=== PATIENT | female | born 1995 | race Caucasian/White ===

== ENCOUNTER 2018-01-28 19:28 | Emergency (ER) | payer OTHER ==
[~2018-01-28] VITALS: Ht 170.2 cm; Wt 65.8 kg
[~2018-01-28 19:28] MED LIST: Amoxicillin500 MG PO; IBUP800 PO; IRON150C PO; Percocet 5-3251 EACH PO
[2018-01-28] MEDS ORDERED: GUAI600T33 PO (21:34)
[2018-01-28] MEDS ORDERED: Zithromax250 MG PO (21:34)
== END 2018-01-28 21:44 | disposition home or self-care (01) ==
LOC: ER 19:28
DX: J20.9 Acute bronchitis, unspecified (principal); J45.909 Unspecified asthma, uncomplicated; D64.9 Anemia, unspecified
CPT/HCPCS: 71046; 99283

== ENCOUNTER → 2019-02-13 | Outpatient (CLI) | payer OTHER ==
[~2019-02-13] MED LIST changes: +GUAI600T33 PO; +Zithromax250 MG PO
== END ==
LOC: LAB SHORT 19:17 → LAB 19:17
PROVIDERS: Registered Nurse Community Health
DX: Z12.4 Encounter for screening for malignant neoplasm of cervix (principal)
CPT/HCPCS: G0123

== ENCOUNTER 2019-08-22 13:49 | Emergency (ER) | payer OTHER ==
[~2019-08-22] VITALS: Ht 165.1 cm; Wt 70.8 kg
[2019-08-22 14:42] LABS: BASOPHILS ABSOLUTE AUTO 0.03 K/mm3 (0.00-0.23); BASOPHILS PERCENT AUTO 0 % (0-2); EOSINOPHILS ABSOLUTE AUTO 0.11 K/mm3 (0.00-0.68); EOSINOPHILS PERCENT AUTO 1 % (0-6); Hematocrit 47.7 % (33.0-51.0); Hemoglobin 15.6 g/dL (11.5-16.0); IMMATURE GRAN ABSOLUTE AUTO 0.02 K/mm3 (0.00-0.10); IMMATURE GRAN PERCENT AUTO 0 % (0-1); LYMPHOCYTES ABSOLUTE AUTO 0.54 K/mm3 (0.84-5.20); LYMPHOCYTES PERCENT AUTO 6 % (21-46); MONOCYTES ABSOLUTE AUTO 0.37 K/mm3 (0.16-1.47); MONOCYTES PERCENT AUTO 4 % (4-13); Mean Corpuscular HGB 30.6 pg (26.0-34.0); Mean Corpuscular HGB Conc 32.7 g/dL (31.5-36.5); Mean Corpuscular Volume 94 fL (80-100); Mean Platelet Volume 10.9 fL (9.1-12.4); NEUTROPHILS ABSOLUTE AUTO 7.35 K/mm3 (1.96-9.15); NEUTROPHILS PERCENT AUTO 87 % (41-73); Platelet Count 196 K/mm3 (150-400); RDW Coefficient Variation 12.5 % (11.7-14.2); RDW Standard Deviation 42.8 fL (35.1-46.3); White Blood Cell Count 8.42 K/mm3 (4.00-11.30)
[2019-08-22 14:44] LABS: Source, Urine Clean Catch
[2019-08-22 14:51] LABS: Bilirubin, Urine Neg (Neg); Blood, Urine 1+ (Neg); Glucose Qualitative, Urine Neg (Neg); Ketones, Urine 1+ (Neg); Leukocyte Esterase, Urine 1+ (Neg); Nitrite, Urine Neg (Neg); Protein, Urine 1+ (Neg); Urobilinogen, Urine 1+ (Normal)
[2019-08-22 14:55] LABS: Appearance, Urine Clear (Clear); Color, Urine Yellow (P-Yellow)
[2019-08-22 15:01] LABS: Alanine Aminotransfer (ALT/SGP 24 U/L (12-78); Albumin, Blood 4.6 g/dL (3.4-5.0); Albumin/Globulin Ratio 1.2 (0.8-1.8); Alk Phos 118 U/L (50-136); Anion Gap 8 mmol/L (6-16); Aspartate Aminotrans (AST/SGOT 22 U/L (12-37); Bilirubin, Total 1.4 mg/dL (0.1-1.0); Blood Urea Nitrogen 15 mg/dL (8-24); Bun/Creatinine Ratio 27.5 (12.0-20.0); CO2, Blood 17 mmol/L (21-32); Calcium, Blood 9.5 mg/dL (8.5-10.1); Chloride, Blood 114 mmol/L (98-108); Creatinine, Blood 0.55 mg/dL (0.40-1.00); Glomerular Filtration Rate >60 (60-); Glucose, Blood 95 mg/dL (70-99); Potassium, Blood 3.7 mmol/L (3.5-5.5); Sodium, Blood 139 mmol/L (136-145); Total Protein, Blood 8.6 g/dL (6.4-8.2)
[2019-08-22 15:08] LABS: Red Blood Cells, Urine 0-2 /hpf (0-2); Squamous Epithelial Cells Few /hpf (Few); White Blood Cells, Urine 0-2 /hpf (0-5)
[2019-08-22 15:09] LABS: Bacteria Mod /hpf; Mucus Mod (0-Heavy)
== END 2019-08-22 16:15 | disposition home or self-care (01) ==
LOC: ER 13:49
PROVIDERS: Physician Assistant
DX: R19.7 Diarrhea, unspecified (principal); R11.2 Nausea with vomiting, unspecified; E86.0 Dehydration; F17.200 Nicotine dependence, unspecified, uncomplicated
CPT/HCPCS: 36415; 80053; 81001; 81025; 83690; 85025; 87086; 96361; 96374; 99284-25; J2405; J7030

== ENCOUNTER → 2023-11-25 | Outpatient (CLI) | payer OTHER ==
[~2023-11-25] MED LIST changes: +ALBU90OI INH; +HYDR1TAB94 PO; +ONDA4 PO; +SYMBICORT 160-4.6 GM IH
== END ==
LOC: LAB SHORT 07:53 → LAB 07:53
DX: R35.0 Frequency of micturition (principal)
CPT/HCPCS: 87086

== ENCOUNTER 2023-12-02 17:12 | Observation (INO) | payer OTHER ==
[~2023-12-02] VITALS: Ht 165.1 cm; Wt 73.0 kg
[~2023-12-02 17:12] MED LIST changes: -ALBU90OI INH; -HYDR1TAB94 PO; -ONDA4 PO; -SYMBICORT 160-4.6 GM IH
[2023-12-02] MEDS ORDERED: SYMBICORT 160-4.6 GM IH (21:51)
[2023-12-02] MEDS ORDERED: ALBU90OI INH (21:51)
[2023-12-02] MEDS ORDERED: Ketorolac Tromethamine 15mg Vial IV ONE (21:55)
[2023-12-02] MEDS ORDERED: FLU VACC QS2023-24(6MOS UP)/PF 60 MCG/0.5 ML SYRINGE IM ONE (22:15)
[2023-12-02] MEDS ORDERED: HYDROcodone 5-APAP 325 TAB PO PRN (22:15)
[2023-12-02] MEDS ORDERED: FentaNYL Citrate 50 MCG/ML 2 ML Injection IV PRN (22:15)
[2023-12-02] MEDS ORDERED: Ondansetron HCl 2 MG / ML 2ML Vial IV PRN (22:20)
[2023-12-02] MEDS ORDERED: Lactated Ringer's 1,000 ML IV SCH (22:20)
[2023-12-02] MEDS ORDERED: Ampicillin Sod/Sulbactam Sod 3 GM in NS 100 ML IV SCH (22:26)
[2023-12-02] MEDS ORDERED: Ketorolac Tromethamine 30mg Vial IV PRN (22:30)
[2023-12-02] MEDS ORDERED: Albuterol HFA200 ACT/6.7 GM INH INH PRN (22:30)
[2023-12-02] MEDS ORDERED: Mometasone/Formoterol MDI 200/5 mcg 13 GM INH SCH (22:30)
[2023-12-03] VITALS (17 sets, daily range): BP systolic 104–125; BP diastolic 59–77
[2023-12-03 03:59] LABS: BASOPHILS ABSOLUTE AUTO 0.03 K/mm3 (0.00-0.23); BASOPHILS PERCENT AUTO 1 % (0-2); EOSINOPHILS ABSOLUTE AUTO 0.12 K/mm3 (0.00-0.68); EOSINOPHILS PERCENT AUTO 4 % (0-6); Hematocrit 35.2 % (33.0-51.0); Hemoglobin 12.1 g/dL (11.5-16.0); Mean Corpuscular HGB 31.7 pg (26.0-34.0); Mean Corpuscular HGB Conc 34.4 g/dL (31.5-36.5); Mean Corpuscular Volume 92 fL (80-100); Mean Platelet Volume 11.1 fL (9.1-12.4); Platelet Count 185 K/mm3 (150-400); RDW Coefficient Variation 11.9 % (11.7-14.2); RDW Standard Deviation 40.4 fL (35.1-46.3); Red Blood Cell Count 3.82 M/mm3 (3.80-5.20); White Blood Cell Count 3.32 K/mm3 (4.00-11.30)
[2023-12-03 04:00] LABS: IMMATURE GRAN PERCENT AUTO 0 % (0-1); LYMPHOCYTES ABSOLUTE AUTO 1.61 K/mm3 (0.84-5.20); LYMPHOCYTES PERCENT AUTO 49 % (21-46); MONOCYTES ABSOLUTE AUTO 0.28 K/mm3 (0.16-1.47); MONOCYTES PERCENT AUTO 8 % (4-13); NEUTROPHILS ABSOLUTE AUTO 1.28 K/mm3 (1.96-9.15); NEUTROPHILS PERCENT AUTO 39 % (41-73)
[2023-12-03 04:20] LABS: Albumin, Blood 3.5 g/dL (3.4-5.0); Albumin/Globulin Ratio 1.2 (0.8-1.8); Bilirubin, Total 1.1 mg/dL (0.1-1.0); Bun/Creatinine Ratio 21.3 (12.0-20.0); Calcium, Blood 8.6 mg/dL (8.5-10.1); Creatinine, Blood 0.56 mg/dL (0.40-1.00); Potassium, Blood 2.9 mmol/L (3.5-5.5); Total Protein, Blood 6.5 g/dL (6.4-8.2)
[2023-12-03] MEDS ORDERED: Potassium Chloride 20 MEQ TabCR PO ONE (08:40)
--- NOTE | 2023-12-03 08:45 | NUR ---
SUMMARY PT POTASSIUM 2.[address] MEJIAS ORDERED 40 MEQ OF K.PT ALERT,AMBULATORY,IV FLUIDS INFUSING TO CLEAR SITE.NPO OTHER THAN K ORDERED.
[2023-12-03] MEDS ORDERED: Nicotine 7 MG PATCH TOP SCH (10:05)
[2023-12-03] MEDS ORDERED: Bupivacaine 0.5% HCl 5 MG/ML 30MLVIAL ONE (10:50)
[2023-12-03] MEDS ORDERED: propofoL 20 ML IV ONE (10:51)
[2023-12-03] MEDS ORDERED: Lidocaine HCl 2% 20 ML MDV ONE (10:51)
[2023-12-03] MEDS ORDERED: FentaNYL Citrate 50 MCG/ML 2 ML Injection ONE ×5 (10:53→13:17)
[2023-12-03] MEDS ORDERED: Rocuronium Bromide 10 MG/ML 5ML Injection IV ONE (10:53)
[2023-12-03] MEDS ORDERED: Lidocaine HCl 2% Jelly 120MG/6ML SYR (20MG PER ML) ONE (11:04)
[2023-12-03] MEDS ORDERED: FentaNYL Citrate 50 MCG/ML 2 ML Injection IV PRN ×4 (11:05→12:40)
[2023-12-03] MEDS ORDERED: Lidocaine HCl 1% 5 ML SYR INJ ONE (11:05)
[2023-12-03] MEDS ORDERED: Midazolam HCl 1MG / ML 2ML Vial IV ONE (11:05)
[2023-12-03] MEDS ORDERED: Ondansetron HCl 2 MG / ML 2ML Vial IV PRN (11:10)
[2023-12-03] MEDS ORDERED: Midazolam HCl 1MG / ML 2ML Vial ONE (11:14)
--- NOTE | 2023-12-03 11:16 | NUR ---
pt taken to day surgery at approximately 1110
[2023-12-03] MEDS ORDERED: Dexamethasone Sod Phos 10 MG/ML 1ML VIAL ONE (11:34)
[2023-12-03] MEDS ORDERED: Ondansetron HCl 2 MG / ML 2ML Vial ONE (11:34)
--- NOTE | 2023-12-03 11:48 | NUR ---
12/03/23 1148 Clay Llamas AMPICILLIN 3GRAMS GIVEN IV AT [address] RAYMOND
[2023-12-03] MEDS ORDERED: Sugammadex Sodium 200 MG/2ML SDV (100 MG/ML) ONE (12:35)
[2023-12-03] MEDS ORDERED: Lactated Ringer's 1,000 ML IV SCH (12:40)
[2023-12-03] MEDS ORDERED: HYDR1TAB94 PO (16:19)
--- NOTE | 2023-12-03 17:56 | NUR ---
DISCHARGE PT A&OX4, VSS/RA, ARIA PO, VOIDING, AMB INDEPENDENTLY/DRESSED SELF, PAIN MANAGED, IVx2 DC'd. DC INS PROVIDED. PT AND S/O REP UNDERSTANDING THOSE INSTRUCTIONS. LEFT FLOOR WITH ALL PERSONAL POSSESSIONS INCLUDING DC INSTRUCTIONS, WEARING ABD BINDER, TO GO HOME WITH S/O.
[2023-12-04] MEDS ORDERED: Nicotine 7 MG PATCH TOP SCH (09:00)
[2023-12-07] MEDS ORDERED: ONDA4 PO (09:43)
== END 2023-12-03 17:55 | disposition home or self-care (01) ==
LOC: ER 17:12 → SURS 17:14
PROVIDERS: ADMIT Surgery
PROC: 0FT44ZZ Resection of Gallbladder, Percutaneous Endoscopic Approach (ICD-10-PCS; principal; 2023-12-03 11:00)
DX: K81.0 Acute cholecystitis (principal); J45.909 Unspecified asthma, uncomplicated; F17.210 Nicotine dependence, cigarettes, uncomplicated; R10.11 Right upper quadrant pain; R19.5 Other fecal abnormalities
CPT/HCPCS: 36415; 74022; 76705; 80053; 81025; 83690; 85025; 88304; 94760; 96361; 96365; 96375; 96376; 99285-25; A9270; C1729; G0378; J0295; J1100; J1885; J2250; J2405; J2704; J3010; J7120

== ENCOUNTER 2024-10-17 07:54 | Emergency (ER) | payer OTHER ==
[~2024-10-17] VITALS: Ht 165.1 cm; Wt 72.6 kg
[~2024-10-17 07:54] MED LIST changes: +ALBU90OI INH; +HYDR1TAB94 PO; +ONDA4 PO; +SYMBICORT 160-4.6 GM IH
[2024-10-17 09:23] VITALS: BP 134/77
[2024-10-17 10:04] LABS: BASOPHILS ABSOLUTE AUTO 0.03 K/mm3 (0.00-0.23); BASOPHILS PERCENT AUTO 1 % (0-2); EOSINOPHILS ABSOLUTE AUTO 0.05 K/mm3 (0.00-0.68); EOSINOPHILS PERCENT AUTO 1 % (0-6); Hematocrit 42.2 % (33.0-51.0); Hemoglobin 14.1 g/dL (11.5-16.0); IMMATURE GRAN ABSOLUTE AUTO 0.01 K/mm3 (0.00-0.10); IMMATURE GRAN PERCENT AUTO 0 % (0-1); LYMPHOCYTES ABSOLUTE AUTO 1.28 K/mm3 (0.84-5.20); LYMPHOCYTES PERCENT AUTO 22 % (21-46); MONOCYTES ABSOLUTE AUTO 0.34 K/mm3 (0.16-1.47); MONOCYTES PERCENT AUTO 6 % (4-13); Mean Corpuscular HGB 31.8 pg (26.0-34.0); Mean Corpuscular HGB Conc 33.4 g/dL (31.5-36.5); Mean Corpuscular Volume 95 fL (80-100); Mean Platelet Volume 11.2 fL (9.1-12.4); NEUTROPHILS ABSOLUTE AUTO 4.03 K/mm3 (1.96-9.15); NEUTROPHILS PERCENT AUTO 70 % (41-73); Platelet Count 214 K/mm3 (150-400); RDW Coefficient Variation 12.1 % (11.7-14.2); RDW Standard Deviation 42.3 fL (35.1-46.3); Red Blood Cell Count 4.44 M/mm3 (3.80-5.20); White Blood Cell Count 5.74 K/mm3 (4.00-11.30)
[2024-10-17 10:38] LABS: Alanine Aminotransfer (ALT/SGP 175 U/L (12-78); Albumin, Blood 4.3 g/dL (3.4-5.0); Albumin/Globulin Ratio 1.1 (0.8-1.8); Alk Phos 144 U/L (50-136); Anion Gap 8 mmol/L (3-11); Aspartate Aminotrans (AST/SGOT 245 U/L (12-37); Beta HCG, Quantitative, Serum <1 mIU/mL (0-3); Blood Urea Nitrogen 8 mg/dL (8-24); Bun/Creatinine Ratio 13.4 (12.0-20.0); CO2, Blood 21 mmol/L (21-32); Calcium, Blood 9.2 mg/dL (8.5-10.1); Chloride, Blood 116 mmol/L (98-108); Globulin, Blood 3.8 g/dL (2.2-4.0); Glomerular Filtration Rate 124 (60-); Glucose, Blood 88 mg/dL (70-99); Potassium, Blood 5.3 mmol/L (3.5-5.5); Sodium, Blood 140 mmol/L (136-145); Total Protein, Blood 8.1 g/dL (6.4-8.2)
[2024-10-17] MEDS ORDERED: Magnesium Citr296 ML PO (11:31)
== END 2024-10-17 11:39 | disposition home or self-care (01) ==
LOC: ER 07:54
PROVIDERS: Student in an Organized Health Care Education/Training Program
DX: R10.11 Right upper quadrant pain (principal); J45.909 Unspecified asthma, uncomplicated; Z88.8 Allergy status to other drugs, medicaments and biological substances
CPT/HCPCS: 74177; 80053; 83690; 84702; 85025; Q9967

== ENCOUNTER 2025-08-04 16:27 | Emergency (ER) | payer OTHER ==
[~2025-08-04] VITALS: Ht 165.1 cm; Wt 68.5 kg
[~2025-08-04 16:27] MED LIST changes: +Magnesium Citr296 ML PO
[2025-08-04 17:30] LABS: BASOPHILS ABSOLUTE AUTO 0.03 K/mm3 (0.00-0.23); BASOPHILS PERCENT AUTO 1 % (0-2); EOSINOPHILS ABSOLUTE AUTO 0.03 K/mm3 (0.00-0.68); EOSINOPHILS PERCENT AUTO 1 % (0-6); Hematocrit 39.9 % (33.0-51.0); Hemoglobin 13.1 g/dL (11.5-16.0); IMMATURE GRAN ABSOLUTE AUTO 0.02 K/mm3 (0.00-0.10); IMMATURE GRAN PERCENT AUTO 0 % (0-1); LYMPHOCYTES ABSOLUTE AUTO 1.83 K/mm3 (0.84-5.20); LYMPHOCYTES PERCENT AUTO 35 % (21-46); MONOCYTES ABSOLUTE AUTO 0.30 K/mm3 (0.16-1.47); MONOCYTES PERCENT AUTO 6 % (4-13); Mean Corpuscular HGB Conc 32.8 g/dL (31.5-36.5); Mean Corpuscular Volume 96 fL (80-100); NEUTROPHILS ABSOLUTE AUTO 2.96 K/mm3 (1.96-9.15); NEUTROPHILS PERCENT AUTO 57 % (41-73); NRBC ABSOLUTE 0.00 K/mm3 (0.00-0.02); NRBC Auto 0.0 /100 WBC (0.0-0.2); Platelet Count 230 K/mm3 (150-400); RDW Coefficient Variation 11.9 % (11.7-14.2); RDW Standard Deviation 41.2 fL (35.1-46.3)
[2025-08-04 17:54] LABS: Alanine Aminotransfer (ALT/SGP 30.0 U/L (12-78); Albumin, Blood 4.6 g/dL (3.4-5.0); Albumin/Globulin Ratio 1.4 (0.8-1.8); Anion Gap 9.0 mmol/L (3-11); Aspartate Aminotrans (AST/SGOT 18.0 U/L (12-37); Bilirubin, Total 0.7 mg/dL (0.1-1.0); Blood Urea Nitrogen 15.0 mg/dL (8-24); CO2, Blood 23.0 mmol/L (21-32); Calcium, Blood 9.4 mg/dL (8.5-10.1); Chloride, Blood 110.0 mmol/L (98-108); Creatinine, Blood 0.69 mg/dL (0.40-1.00); Globulin, Blood 3.2 g/dL (2.2-4.0); Glucose, Blood 88.0 mg/dL (70-99); Potassium, Blood 3.5 mmol/L (3.5-5.5); Sodium, Blood 138.0 mmol/L (136-145); Total Protein, Blood 7.8 g/dL (6.4-8.2)
[2025-08-04] MEDS ORDERED: Ketorolac Tromethamine 15mg Vial IV ONE (19:55)
[2025-08-04 19:59] VITALS: BP 118/86
[2025-08-04] MEDS ORDERED: ONDA4ODT MM (20:01)
[2025-08-04] MEDS ORDERED: RX Prepack 2 Tabs Ondansetron ODT 4MG UD ONE (20:05)
== END 2025-08-04 20:17 | disposition home or self-care (01) ==
LOC: ER 16:27
PROVIDERS: Student in an Organized Health Care Education/Training Program
DX: H53.8 Other visual disturbances (principal); R51.9 Headache, unspecified
CPT/HCPCS: 70450; 80053; 85025; 93005; 93010; 96374; 99284-25; A9270; J1885